=== PATIENT | female | born 1955 | race Two or more races ===

== ENCOUNTER 2016-11-24 07:19 | Day surgery (SDC) | payer OTHER ==
[2014-08-31 07:18] VITALS: BMI 30.4
[2016-11-24] MEDS ORDERED: Lactated Ringer's 500 ML IV ONE (07:53)
[2016-11-24] MEDS ORDERED: Midazolam 2 MG/2 ML VIAL ONE (09:21)
[2016-11-24] MEDS ORDERED: Propofol 10 mg/ml Inj (20 ML) ONE ×2 (09:21→09:48)
[2016-11-24 09:55] VITALS: TEMP 96.7
[2016-11-24 10:19] VITALS: BP 108/43; PULSE 74; RESP 15; O2SAT 98
== END 2016-11-24 11:21 | disposition home or self-care (01) ==
LOC: H.ENDO 07:19
PROVIDERS: ATTEND Internal Medicine Gastroenterology
DX: K29.70 Gastritis, unspecified, without bleeding (principal); K62.1 Rectal polyp; K21.9 Gastro-esophageal reflux disease without esophagitis; K57.30 Diverticulosis of large intestine without perforation or abscess without bleeding; K63.89 Other specified diseases of intestine; K59.00 Constipation, unspecified; Z98.0 Intestinal bypass and anastomosis status
CPT/HCPCS: 43239; 45380; 88305; J2001; J2250; J2704; J7120